=== PATIENT | female | born 1975 | race Caucasian/White ===

== ENCOUNTER 2016-10-15 22:41 | Emergency (ER) | payer OTHER ==
[2016-10-15] MEDS ORDERED: FAMOTIDINE 20 MG TABLET PO ONE (23:08)
[2016-10-15] MEDS ORDERED: ASPIRIN 81 MG TABLET, CHEWABLE PO ONE (23:08)
[2016-10-15 23:10] VITALS: BP 147/80
--- NOTE | 2016-10-15 23:10 | ER Document Report ---
ED Medical Screen (RME) - General Chief Complaint: Chest Pain Stated Complaint: CHEST PAIN Notes: 40 year old female, c/o chest pain in center of chest and also into shoulder blades, also has some stomach cramps, worse when lying flat. Also on a "flare" of Lupus and on prednisone at this time. States she was in pain and this resolved, states now she has indigestion. No hx SC or heart disease, occasionally smokes. TRAVEL OUTSIDE OF THE [place] IN LAST 30 DAYS: No - Related Data Allergies/Adverse Reactions: No Known Allergies Allergy (Unverified 07/24/15 01:28) Past Medical History - Immunizations Hx Diphtheria, Pertussis, Tetanus Vaccination: Yes Physical Exam - Respiratory Respiratory status: No respiratory distress Breath sounds: No: Decreased air movement, Wheezing - Abdominal Tenderness: Nontender. No: Tender, Guarding
--- NOTE | 2016-10-16 18:20 | EKG REPORT ---
SEVERITY:- NORMAL ECG - SINUS RHYTHM : Confirmed by: Kingsley Chavira MD 16-Oct-2016 18:20:18
== END 2016-10-15 23:12 | disposition left against medical advice (07) ==
LOC: ER 22:41
DX: Z53.9 Procedure and treatment not carried out, unspecified reason (principal); R07.9 Chest pain, unspecified; R10.9 Unspecified abdominal pain
CPT/HCPCS: 93005; 93010; 99281

== ENCOUNTER 2016-10-16 13:41 | Emergency (ER) | payer OTHER ==
[2016-10-16] MEDS ORDERED: ASPIRIN 81 MG TABLET, CHEWABLE PO ONE (13:55)
--- NOTE | 2016-10-16 13:56 | ER Document Report ---
ED Medical Screen (RME) - General Stated Complaint: CHEST PAIN Notes: Recent states she has had intermittent chest pain for the last several days. Pain radiates through to back between shoulder blades. Also complains of abdominal cramping. Told by a wood panel inspector to come to the emergency room for evaluation. Is scheduled to see a surgeon for evaluation of gallstones. Does report shortness of breath, but denies nausea or vomiting. I have greeted and performed a rapid initial assessment of this patient. A comprehensive ED assessment and evaluation of the patient, analysis of test results and completion of the medical decision making process will be conducted by additional ED providers. TRAVEL OUTSIDE OF THE [place] IN LAST 30 DAYS: No - Related Data Allergies/Adverse Reactions: No Known Allergies Allergy (Verified 10/16/16 13:54) Past Medical History Renal/ Medical History: Denies: Hx Peritoneal Dialysis - Immunizations Hx Diphtheria, Pertussis, Tetanus Vaccination: Yes Physical Exam - Vital signs Vitals: Temp Pulse Resp BP Pulse Ox 98.4 F 92 14 128/73 H 99 10/16/16 13:45 10/16/16 13:45 10/16/16 13:45 10/16/16 13:45 10/16/16 13:45 - Cardiovascular Rhythm: Regular Heart sounds: Normal auscultation Course - Vital Signs Vital signs: Temp Pulse Resp BP Pulse Ox 98.4 F 92 14 128/73 H 99 10/16/16 13:45 10/16/16 13:45 10/16/16 13:45 10/16/16 13:45 10/16/16 13:45
[2016-10-16 14:18] LABS: ABSOLUTE BASOPHILS # (AUTO) 0.1 10^3/uL (0.0-0.2); ABSOLUTE EOSINOPHILS # (AUTO) 0.3 10^3/uL (0.0-0.6); ABSOLUTE LYMPHOCYTES (AUTO) 2.3 10^3/uL (0.5-4.7); ABSOLUTE MONOCYTES (AUTO) 0.9 10^3/uL (0.1-1.4); ABSOLUTE NEUT (AUTO) 7.8 10^3/uL (1.7-8.2); BASOPHILS % (AUTO) 0.7 % (0-2); EOSINOPHILS % (AUTO) 2.9 % (0-6); HEMATOCRIT 38.3 % (36.0-47.0); HEMOGLOBIN 12.5 g/dL (12.0-15.5); HGB HCT DIFFERENCE -0.8; LYMPHOCYTES % (AUTO) 20.4 % (13-45); MEAN CORPUSCULAR HEMOGLOBIN 26.3 pg (27.0-33.4); MEAN CORPUSCULAR HGB CONC 32.8 g/dL (32.0-36.0); MEAN CORPUSCULAR VOLUME 80 fl (80-97); MONOCYTES % (AUTO) 7.6 % (3-13); RED BLOOD COUNT 4.76 10^6/uL (3.72-5.28); RED CELL DISTRIBUTION WIDTH 14.1 % (11.5-14.0); SEGMENTED NEUTROPHILS % (AUTO) 68.4 % (42-78); WHITE BLOOD COUNT 11.4 10^3/uL (4.0-10.5)
[2016-10-16 14:38] LABS: ALANINE AMINOTRANSFERASE 25 U/L (9-52); ALBUMIN 3.9 g/dL (3.5-5.0); ALKALINE PHOSPHATASE 52 U/L (38-126); ANION GAP 14 (5-19); ASPARTATE AMINO TRANSFERASE 20 U/L (14-36); BILIRUBIN,DIRECT 0.3 mg/dL (0.0-0.4); BILIRUBIN,TOTAL 0.4 mg/dL (0.2-1.3); BLOOD UREA NITROGEN 10 mg/dL (7-20); CALCIUM 9.4 mg/dL (8.4-10.2); CARBON DIOXIDE 26 mmol/L (22-30); CHLORIDE 104 mmol/L (98-107); CREATINE KINASE 61 U/L (30-135); CREATININE RESULT 0.71 mg/dL (0.52-1.25); GLUCOSE 87 mg/dL (75-110); LIPASE 270.2 U/L (23-300); POTASSIUM 4.3 mmol/L (3.6-5.0); SODIUM 143.9 mmol/L (137-145); TOTAL PROTEIN 6.3 g/dL (6.3-8.2)
[2016-10-16 14:50] LABS: CREATINE KINASE MB 0.43 ng/mL (<4.55)
[2016-10-16 14:51] LABS: TROPONIN I < 0.012 ng/mL
[2016-10-16 18:01] LABS: APPEARANCE,URINE CLEAR; BILIRUBIN,URINE NEGATIVE (NEGATIVE); GLUCOSE, URINE NEGATIVE (NEGATIVE); KETONES,URINE NEGATIVE (NEGATIVE); LEUKOCYTE ESTERASE,URINE TRACE (NEGATIVE); NITRITE,URINE NEGATIVE (NEGATIVE); PROTEIN,URINE NEGATIVE (NEGATIVE); UROBILINOGEN,URINE NEGATIVE mg/dL (<2.0)
[2016-10-16] MEDS ORDERED: METOCLOPRAMIDE HCL ORAL SOLN 10 MG/10 ML UDCUP PO ONE (19:26)
[2016-10-16] MEDS ORDERED: MAG HYDROX/AL HYDROX/SIMETH SUSP 30 ML UDCUP PO ONE (19:26)
[2016-10-16] MEDS ORDERED: LIDOCAINE 2% VISCOUS SOLN 20 ML UDCUP PO ONE (19:26)
[2016-10-16] MEDS ORDERED: FAMOTIDINE 20 MG TABLET PO ONE (19:26)
--- NOTE | 2016-10-16 19:41 | ER Document Report ---
ED General - General Chief Complaint: Chest Pain Stated Complaint: CHEST PAIN Notes: Patient is a 40-year-old female with past history of an unspecified rheumatologic disorder currently on methylprednisolone presents with 3-4 days of intermittent chest pain. States that this occurs mostly when she goes to sleep and lays down at night. Lying flat worsens the pain. The pain does resolve spontaneously. She has not seen her primary doctor regarding today's concerns. She denies a history of similar symptoms in the past. No history of DVT or pulmonary embolus. She has no cardiac history. She denies any associated nausea, vomiting, diaphoresis or shortness of breath. No pleuritic pain. TRAVEL OUTSIDE OF THE [place] IN LAST 30 DAYS: No - Related Data Allergies/Adverse Reactions: No Known Allergies Allergy (Verified 10/16/16 13:54) Past Medical History - General Information source: Patient - Social History Smoking Status: Never Smoker Chew tobacco use (# tins/day): No Frequency of alcohol use: Occasional Drug Abuse: None Lives with: Spouse/Significant other Family History: Reviewed & Not Pertinent Patient has suicidal ideation: No Patient has homicidal ideation: No Renal/ Medical History: Denies: Hx Peritoneal Dialysis - Immunizations Hx Diphtheria, Pertussis, Tetanus Vaccination: Yes Review of Systems - Review of Systems Notes: Constitutional: Negative for fever. HENT: Negative for sore throat. Eyes: Negative for visual changes. Cardiovascular: Positive for chest pain. Respiratory: Negative for shortness of breath. Gastrointestinal: Negative for abdominal pain, vomiting or diarrhea. Genitourinary: Negative for dysuria. Musculoskeletal: Negative for back pain. Skin: Negative for rash. Neurological: Negative for headaches, weakness or numbness. 10 point ROS negative except as marked above and in HPI. Physical Exam - Vital signs Vitals: Temp Pulse Resp BP Pulse Ox 98.4 F 92 14 128/73 H 99 10/16/16 13:45 10/16/16 13:45 10/16/16 13:45 10/16/16 13:45 10/16/16 13:45 Interpretation: Normal Notes: PHYSICAL EXAMINATION: GENERAL: Well-appearing, well-nourished and in no acute distress. HEAD: Atraumatic, normocephalic. EYES: Pupils equal round and reactive to light, extraocular movements intact, sclera anicteric, conjunctiva are normal. ENT: nares patent, oropharynx clear without exudates. Moist mucous membranes. NECK: Normal range of motion, supple without lymphadenopathy LUNGS: Breath sounds clear to auscultation bilaterally and equal. No wheezes rales or rhonchi. HEART: Regular rate and rhythm without murmurs ABDOMEN: Soft, nontender, normoactive bowel sounds. No guarding, no rebound. No masses appreciated. EXTREMITIES: Normal range of motion, no pitting or edema. No cyanosis. NEUROLOGICAL: No focal neurological deficits. Moves all extremities spontaneously and on command. PSYCH: Normal mood, normal affect. SKIN: Warm, Dry, normal turgor, no rashes or lesions noted. Course - Re-evaluation Re-evalutation: 10/16/16 19:40 Presentation of chest pain in an otherwise well appearing patient. Low clinical suspicion for ACS given clinical history, exam, EKG without ST elevations or depressions, and negative initial troponin. HEART score less than or equal to 3. PE also seems unlikely given clinical history, absence of tachycardia or dyspnea. Patient is PERC criteria negative. CXR without evidence of pneumothorax or pneumonia. No widened mediastinum. Aortic dissection also seems unlikely given history, symmetric pulses, CXR, and vitals. HEART Score: History:0 EC Age:0 Risk Factors:1 Troponin:0 Total: 1 10/16/16 20:50 Second troponin remains negative. Final assessment: Chest pain in a patient without evidence of cardiac or other serious etiology on workup today. I discussed with patient that, based on their age, risk factors and emergency department testing today, the likelihood that their symptoms are related to a heart attack is very low (estimated risk of heart attack or over the next 30 days of less than 1%). The patient demonstrates decision making capacity and has verbalized an understanding of these risks to me. Based on this, the patient has chosen to follow-up as an outpatient. Usual chest pain return precautions reviewed. The patient states understanding and agreement with this plan. - Vital Signs Vital signs: Temp Pulse Resp BP Pulse Ox 98.4 F 92 11 L 110/62 96 10/16/16 21:09 10/16/16 13:45 10/16/16 21:09 10/16/16 21:09 10/16/16 21:09 - Laboratory Result Diagrams: 10/16/16 14:05 10/16/16 14:05 Laboratory results interpreted by me: 10/16/16 10/16/16 14:05 17:43 WBC 11.4 H MCH 26.3 L RDW 14.1 H Urine Blood MODERATE H Ur Leukocyte Esterase TRACE H Urine Ascorbic Acid 20 H - Diagnostic Test Radiology reviewed: Image reviewed, Reports reviewed Radiology results interpreted by me: 10/16/16 19:41 Chest x-ray: No acute infiltrate or pneumothorax - EKG Interpretation by Me Additional EKG results interpreted by me: 10/16/16 19:41 Normal sinus rhythm. Rate 85. No ST elevations or depressions. QTC is 409. Discharge - Discharge Clinical Impression: Chest pain Qualifiers: Chest pain type: unspecified Qualified Code(s): R07.9 - Chest pain, unspecified Condition: Good Disposition: HOME, SELF-CARE Additional Instructions: You were seen today for chest pain. The exact cause of your pain is unclear. However, based on your cardiac enzyme testing, chest x-ray, and EKG it does not appear that it is from an immediately life-threatening cause at this time. Although your testing here is normal is critical that you follow-up with your primary care physician for continued evaluation of this chest pain and possible stress testing. I recommended you see your physician within the next 24-48 hours to be evaluated for consideration of a stress test. Please return to emergency department immediately if you have worsening of your chest pain, shortness of breath, vomiting, become unable to exert yourself due to pain or difficulty breathing, you pass out, or have any pain that radiates into your arms, jaw, or back. Please also return if you have any additional symptoms that are concerning to you. Please start taking famotidine 40mg in the morning and at night. I suspect overall your symptoms are likely related to your use of steroids and esophageal irritation. You can buy famotidine over the counter and it should help with your symptoms. Referrals: GURPREET GALLAGHER NP [Primary Care Provider] - Follow up in 3-5 days
[2016-10-16 21:15] VITALS: BP 110/62
== END 2016-10-16 21:05 | disposition home or self-care (01) ==
LOC: ER 13:41
DX: R07.9 Chest pain, unspecified (principal)
CPT/HCPCS: 99285; 36415; 82553; 82550; 84702; 83690; 85025; 80053; 81001; 84484; 71020; J3490

== ENCOUNTER → 2016-10-30 | Outpatient (CLI) | payer OTHER | LOC: RAD 20:15 | PROVIDERS: ATTEND Physician Assistant | DX: K76.89 Other specified diseases of liver (principal); N28.1 Cyst of kidney, acquired; K80.20 Calculus of gallbladder without cholecystitis without obstruction | CPT/HCPCS: 74183; A9576 ==

== ENCOUNTER → 2017-01-03 | Outpatient (CLI) | payer OTHER ==
--- NOTE | 2017-01-03 13:22 | RADIOLOGY REPORT (SQ) ---
EXAM DESCRIPTION: CT HEAD WITHOUT COMPLETED DATE/TIME: 01/03/2017 1:14 pm REASON FOR STUDY: MIGRAINE WITH AURA, NOT INTRACTABLE, W/O STATUS MIGRAINOSUS (G43.109) G43.109 ALEX KLEIN WITH AURA, NOT INTRACTABLE, W/O STATUS MIGR COMPARISON: None. TECHNIQUE: Axial images acquired through the brain without intravenous contrast. Images reviewed wi th bone, brain and subdural windows. Images stored on PACS. All CT scanners at this facility use dose modulation, iterative reconstruction, and/or weight based d osing when appropriate to reduce radiation dose to as low as reasonably achievable (ALARA). [facility]: Dose Right [facility]: CareDose [facility]: Dose Right [facility]: Teradose 4D [facility]: [employer] RADIATION DOSE: 48.95 mGy. LIMITATIONS: None. FINDINGS: VENTRICLES: Normal size and contour. CEREBRUM: No masses. No hemorrhage. No midline shift. Normal abdullahi/white matter differentiation. N o evidence for acute infarction. CEREBELLUM: No masses. No hemorrhage. No alteration of density. No evidence for acute infarction. EXTRAAXIAL SPACES: No fluid collections. No masses. ORBITS AND GLOBE: No intra- or extraconal masses. Normal contour of globe without masses. CALVARIUM: No fracture. PARANASAL SINUSES: No fluid or mucosal thickening. SOFT TISSUES: No mass or hematoma. OTHER: No other significant finding. IMPRESSION: NORMAL BRAIN CT WITHOUT CONTRAST. TECHNICAL DOCUMENTATION: JOB ID: [id number] Quality ID # [id number]: Final reports with documentation of one or more dose reduction techniques (e.g., Au tomated exposure control, adjustment of the mA and/or kV according to patient size, use of iterative reconstruction technique) 2010 [employer]- All Rights Reserved
== END ==
LOC: RAD 12:20
PROVIDERS: ATTEND Physician Assistant
DX: G43.109 Migraine with aura, not intractable, without status migrainosus (principal)
CPT/HCPCS: 70450

== ENCOUNTER → 2019-12-31 | Outpatient (CLI) | payer OTHER ==
--- NOTE | 2019-12-31 16:06 | RADIOLOGY REPORT (SQ) ---
EXAM DESCRIPTION: U/S NON-OB PELVIS W/O DOP IMAGES COMPLETED DATE/TIME: 12/31/2019 3:49 pm REASON FOR STUDY: N92.4 EXCESSIVE BLEEDING IN THE PREMENOPAUSAL PERIOD N92.4 EXCESSIVE BLEEDING IN THE PREMENOPAUSAL PERIOD COMPARISON: None. TECHNIQUE: Dynamic and static grayscale images acquired of the pelvis via transabdominal approach an d recorded on PACS. Additional selected color Doppler and spectral images recorded. LIMITATIONS: None. FINDINGS: UTERUS: Several fibroids, the largest 3.5 cm. ENDOMETRIAL STRIPE: No focal or generalized thickening. No masses. CERVIX: No nabothian cysts. RIGHT OVARY AND DOPPLER: Normal size. No worrisome masses. Normal arterial vascular flow without evid ence for torsion. LEFT OVARY AND DOPPLER: Normal size. No worrisome masses. Normal arterial vascular flow without evide nce for torsion. FREE FLUID: None noted. OTHER: No other significant finding. MEASUREMENTS: UTERUS: 10.8 x 5.9 x 4.9 cm ENDOMETRIAL STRIPE: 5 mm RIGHT OVARY: 3.4 x 2.1 x 2.7 cm LEFT OVARY: 4.0 x 2.1 x 2.9 cm IMPRESSION: Uterine fibroids. TECHNICAL DOCUMENTATION: JOB ID: [id number] 2010 [employer]- All Rights Reserved Reading location - IP/workstation name: [email or web address]
== END ==
LOC: RAD 14:57
PROVIDERS: ATTEND Family Medicine
DX: D25.9 Leiomyoma of uterus, unspecified (principal); N92.4 Excessive bleeding in the premenopausal period
CPT/HCPCS: 76856

== ENCOUNTER 2020-03-28 07:33 | Day surgery (SDC) | payer OTHER ==
[2020-03-23 09:33] LABS: MEAN CORPUSCULAR HEMOGLOBIN 20.7 pg (27.0-33.4); MEAN CORPUSCULAR VOLUME 67 fl (80-97); PLATELET COUNT 481 10^3/uL (150-450); RED BLOOD COUNT 4.33 10^6/uL (3.72-5.28); RED CELL DISTRIBUTION WIDTH 17.8 % (11.5-14.0); WHITE BLOOD COUNT 9.4 10^3/uL (4.0-10.5)
[2020-03-23 09:51] LABS: APPEARANCE,URINE SLIGHTLY-CLOUDY; BILIRUBIN,URINE NEGATIVE (NEGATIVE); COLOR,URINE YELLOW; GLUCOSE, URINE NEGATIVE (NEGATIVE); KETONES,URINE NEGATIVE (NEGATIVE); LEUKOCYTE ESTERASE,URINE TRACE (NEGATIVE); NITRITE,URINE NEGATIVE (NEGATIVE); PROTEIN,URINE NEGATIVE (NEGATIVE); URINE SPECIFIC GRAVITY 1.014; UROBILINOGEN,URINE NEGATIVE mg/dL (<2.0)
[2020-03-28] MEDS ORDERED: ONDANSETRON HCL INJ/PF 4 MG/2 ML SDV ONE (09:01)
[2020-03-28] MEDS ORDERED: FENTANYL CITRATE INJ/PF 100 MCG/2 ML AMPUL ONE (09:01)
[2020-03-28] MEDS ORDERED: MIDAZOLAM 2 MG/2 ML INJ ONE (09:01)
[2020-03-28] MEDS ORDERED: KETOROLAC TROMETHAMINE 60 MG/2 ML SDV ONE (09:01)
[2020-03-28] MEDS ORDERED: PROPOFOL INJ 200 MG/20 ML VIAL IV ONE (09:02)
[2020-03-28] MEDS ORDERED: DEXMEDETOMIDINE INJ 80 MCG/20 ML VIAL IV ONE (09:26)
[2020-03-28] MEDS ORDERED: MEPERIDINE HCL/PF INJ 25 MG/1 ML DISP.SYRIN IV PRN (10:01)
[2020-03-28] MEDS ORDERED: ONDANSETRON HCL INJ/PF 4 MG/2 ML SDV IV PRN (10:01)
[2020-03-28] MEDS ORDERED: OXYCODONE-ACETAMINOPHEN 5-325 MG TABLET PO PRN ×2 (10:01)
[2020-03-28] MEDS ORDERED: DIPHENHYDRAMINE HCL 50 MG/ML VIAL IV PRN (10:01)
[2020-03-28] MEDS ORDERED: MORPHINE SULFATE 10 MG/ML INJ IV PRN (10:01)
[2020-03-28] MEDS ORDERED: PROMETHAZINE HCL INJ 25 MG/1 ML VIAL IV PRN ×2 (10:01)
[2020-03-28] MEDS ORDERED: FENTANYL CITRATE INJ/PF 100 MCG/2 ML AMPUL IV PRN ×3 (10:01)
[2020-03-28] MEDS ORDERED: MORPHINE SULFATE 10 MG/ML INJ ONE (10:23)
--- NOTE | 2020-03-28 11:02 | Operative Report ---
Operative Report DATE OF SURGERY: 03/28/20 PREOPERATIVE DIAGNOSIS: Abnormal uterine bleeding. Visible mass in cervical os POSTOPERATIVE DIAGNOSIS: Same as above. Fibroid of cervical canal OPERATION: Dilation of cervix, curettage, hysteroscopy, fibroid removal and myosure SURGEON: EMILY XIONG ANESTHESIA: LMAC TISSUE REMOVED OR ALTERED: Fibroid from cervical canal. Endometrial curettings and tissue from myosure of endometrial cavity COMPLICATIONS: None ESTIMATED BLOOD LOSS: 50cc INTRAOPERATIVE FINDINGS: Fibroid in os of cervix dilating cervix to approximately 3 cm. Endometrial cavity fluffy with possible polyp noted from anterior wall of endometrium PROCEDURE: IV fluids: Crystalloid IV fluids per anesthesia record UOP: voided prior to the procedure Disposition: To recovery room in stable condition Description of the procedure: The patient was taken to the operating room where monitored anesthesia was administered and found to be adequate. She was then placed in the dorsol lithotomy position and prepped and draped in the usual sterile fashion. A timeout was taken. A weighted speculum and paul retractor were placed in the vagina and the cervix was brought into good view. A single- tooth tenaculum was used to grasp the anterior lip of the cervix and the cervix was serially dilated. A fibroid could be noted in the cervical canal. Attempt was made to remove this with ring forceps and an Allis clamp. The fibroid was not able to be freed. The uterus sounded to approximately 8 cm. The hysteroscope was then inserted and using a saline distention medium the uterine cavity was inspected. Multiple pictures were obtained. A fluffy endometrium with polyp from the anterior endometrial wall was noted was noted. 2 recess areas likely where ostia open were noted but the fluffy endometrium made visualization of the ostia difficult. At this point the myosure was inserted and the fibroid removal began. The MyoSure was used to loosen the stalk and then ring forceps and single-tooth tenaculum were used to remove the fibroid in its entirety. Curettage was done of the endometrial cavity in a clockwise fashion until a gritty texture was noted this tissue along with the fibroid will be sent as #1 fibroid cervical canal and #2 endometrial curettings.the MyoSure was used to further remove fluffy tissue from the endometrial cavity and this will be sent along with the endometrial curettings as specimen #2. Post removal pictures were taken. The hysteroscope was withdrawn. The procedure was then terminated all instrument to remove the patient's vagina. Hemostasis was obtained at the cervix using silver nitrate. The patient tolerated the procedure well all instrument sponge and needle counts were correct x2 for the procedure she will proceed to recovery room in stable condition
--- NOTE | 2020-03-28 12:21 | Discharge Summary ---
Discharge Summary (SDC) - Discharge Final Diagnosis: Abnormal uterine bleeding FIbroid of cervical canal Date of Surgery: 03/28/20 Discharge Date: 03/28/20 Condition: Stable Forms: ASU Anesthesia D/C Instruction, Discharge POC-Surgical Service Treatment or Instructions: Resume regular diet and activities except no tub baths or swimming until returning to the office. Prescriptions: Ibuprofen [Ibu] 800 mg PO Q8HP PRN 10 Days #30 tablet PRN Reason: For Pain Scale 2-3 Ibuprofen [Motrin 800 mg Tablet] 800 mg PO Q8H PRN 10 Days #30 PRN Reason: Hydrocodone/Acetaminophen [Meredith 5-325 mg Tablet] 1 tab PO Q4 PRN 4 Days #20 tablet PRN Reason: Referrals: EMILY XIONG MD [ACTIVE PROVISIONAL STAFF] - Discharge Diet: As Tolerated - Stable after removal fibroid from cervical cannal, d&C hysteroscopy and myosure. Respiratory Treatments at Home: Deep Breathing/Coughing Discharge Activity: Activity As Tolerated, Balance Activity w/Rest, No Driving, Energy Conservation, No Lifting/Push/Pulling, Pelvic Rest, Slowly Increase Activity, No tub bath Home Care Assistance: None Needed Report the Following to Your Physician Immediately: Shortness of Breath, Nausea, Vomiting, Increase in Pain, Fever over 101 Degrees, Unusual Bleeding, Redness, Swelling, Warmth, Drainage-Yellow, Drainage-Green, Increased Vaginal Bleed, Large Clots
[2020-03-28] MEDS ORDERED: IRON SUCROSE COMPLEX INJ/PF 100 MG/5 ML SDV IV ONE (12:30)
[2020-03-28 12:40] VITALS: BP 134/78
[2020-03-28] MEDS ORDERED: IRON SUCROSE COMPLEX 200 MG in NORMAL SALINE 100 ML IV ONE (13:00)
== END 2020-03-28 12:55 | disposition home or self-care (01) ==
LOC: OROUT 07:33
PROVIDERS: ATTEND Obstetrics & Gynecology
DX: D25.9 Leiomyoma of uterus, unspecified (principal); N84.0 Polyp of corpus uteri; N92.6 Irregular menstruation, unspecified; M06.9 Rheumatoid arthritis, unspecified; J45.909 Unspecified asthma, uncomplicated; Z03.818 Encounter for observation for suspected exposure to other biological agents ruled out
CPT/HCPCS: 36415; 85027; 87635; 81025; 81001; 88305 ×2; 00952; 58558; J2250; J1756; J1885; J3010; J2270; J2405; J7050; J2704; J3490; C9803; 952